=== PATIENT | male | born 1985 | race Two or more races ===

== ENCOUNTER 2017-10-21 06:01 | Emergency (ER) | payer MEDICAID ==
[~2017-10-21] VITALS: Ht 188 cm; Wt 73.0 kg
[2017-10-21] MEDS ORDERED: ASPIRIN 81MG TABLET PO ONE (06:30)
[2017-10-21 06:38] LABS: PROTHROMBIN TIME 10.8 sec (9.4-11.6)
[2017-10-21 06:49] LABS: BASOPHILS % 1.1 % (0.0-2.0); CHLORIDE 107 mEq/L (98-107); EOSINOPHILS % 5.9 % (0.0-5.0); HEMATOCRIT. 42.2 % (42.0-52.0); HEMOGLOBIN. 14.6 g/dL (14.0-18.0); MEAN CORPUSCULAR HEMOGLOBIN 30.4 pg (28.0-32.0); MEAN CORPUSCULAR VOLUME 87.7 fL (80.0-94.0); MEAN PLATELET VOLUME 8.4 fl (7.4-10.4); PLATELET 246 x1000/uL (130-400); RED BLOOD CELL COUNT 4.82 mill/uL (4.7-6.1); RED CELL DISTRIBUTION WIDTH 12.4 % (11.6-14.6)
[2017-10-21] MEDS ORDERED: LORAZEPAM 1MG TABLET PO ONE (07:15)
[2017-10-21 10:17] VITALS: BP 104/65
== END 2017-10-21 10:22 | disposition home or self-care (01) ==
LOC: ER 06:43
DX: R07.89 Other chest pain (principal); F41.0 Panic disorder [episodic paroxysmal anxiety]
CPT/HCPCS: 36415; 71045; 80053; 83880; 84484; 85025; 85610; 93005; 96372; 99285